=== PATIENT | female | born 1960 | race Caucasian/White ===

== ENCOUNTER 2022-10-07 12:33 | Outpatient (CLI) | payer SELFPAY ==
[2022-10-07 12:56] LABS: BASOPHILS # (AUTO) 0.1 10^3/uL (0.0-0.1); BASOPHILS % (AUTO) 0.9 %; EOSINOPHILS % (AUTO) 0.6 %; HCT - HEMATOCRIT 44.3 % (37.0-47.0); LYMPHOCYTES # (AUTO) 2.2 10^3/uL (1.5-3.5); LYMPHOCYTES % (AUTO) 32.5 %; MEAN CORPUSCULAR HEMOGLOBIN 29.3 pg (27.0-31.0); MEAN CORPUSCULAR HGB CONC 31.6 g/dL (32.0-36.0); MEAN CORPUSCULAR VOLUME 92.7 fL (81.0-99.0); MEAN PLATELET VOLUME 9.1 fL (7.9-10.8); MONOCYTES # (AUTO) 0.4 10^3/uL (0.0-1.0); MONOCYTES % (AUTO) 5.6 %; PLT - PLATELET COUNT 244 10^3/uL (130-450); RED BLOOD COUNT 4.78 10^6/uL (4.20-5.40); RED CELL DISTRIBUTION WIDTH 12.9 % (12.0-15.0); WHITE BLOOD COUNT 6.7 x10^3/uL (4.8-10.8)
[2022-10-07 13:17] LABS: ALBUMIN 3.5 g/dL (3.2-5.5); ALKALINE PHOSPHATASE 53 IU/L (42-121); ALT ALANINE AMINOTRANSFERASE 16 IU/L (10-60); AMYLASE 60 U/L (28-100); AST ASPARTATE AMINOTRANSFERASE 18 IU/L (10-42); BILIRUBIN,TOTAL 0.6 mg/dL (0.2-1.0); BUN - BLOOD UREA NITROGEN 18 mg/dL (6-20); CALCIUM 9.9 mg/dL (8.5-10.3); CARBON DIOXIDE - CO2 27 mmol/L (21-32); CHLORIDE 105 mmol/L (101-111); CHOL/HDL RATIO 3.3 (<4.4); CHOLESTEROL 189 mg/dL; CREATININE 0.8 mg/dL (0.4-1.0); GFR - MDRD 73 (>89); GLUCOSE 105 mg/dL (70-100); HDL CHOLESTEROL 57 mg/dL; LDL CHOLESTEROL,CALCULATED 107 mg/dL; LDL/HDL RATIO 1.9 (<4.4); LIPASE 35 U/L (22-51); PHOSPHORUS 3.1 mg/dL (2.5-4.6); POTASSIUM 3.9 mmol/L (3.5-5.0); SODIUM 141 mmol/L (135-145); TOTAL PROTEIN 7.6 g/dL (6.7-8.2); TRIGLYCERIDES 125 mg/dL; VLDL CHOLESTEROL 25 mg/dL
[2022-10-07 13:33] LABS: BILIRUBIN,DIRECT < 0.1 mg/dL (0.1-0.5)
== END 2022-10-07 12:34 | disposition home or self-care (01) ==
LOC: LAB 12:33
PROVIDERS: ATTEND Naturopath
DX: R10.13 Epigastric pain (principal)
CPT/HCPCS: 36415; 80061; 80069; 80076; 81599; 82150; 83690; 83721; 85025; 86677

== ENCOUNTER 2022-10-10 11:17 | Outpatient (CLI) | payer SELFPAY ==
--- NOTE | 2022-10-10 16:47 | Ultrasound Report ---
PROCEDURE: Abdomen Limited INDICATIONS: ABDOMINAL PAIN, DIARRHEA/FECAL INCONTINENCE TECHNIQUE: Real-time focused scanning was performed of the abdomen, with image documentation. COMPARISON: None FINDINGS: Liver is within normal limits. Gallbladder is grossly unremarkable. No biliary ductal dila tation. Pancreas is grossly unremarkable. Right kidney demonstrates no hydronephrosis. Proximal aorta is normal in caliber. IVC is patent. IMPRESSION: No acute process. Reviewed by: Dereje Christian MD on 10/10/2022 4:46 PM PST Approved by: Dereje Christian MD on 10/10/2022 4:46 PM PST Station ID: [id number]
== END 2022-10-10 11:18 | disposition home or self-care (01) ==
LOC: DI 11:17
PROVIDERS: ATTEND Naturopath
DX: R10.9 Unspecified abdominal pain (principal); R19.7 Diarrhea, unspecified; R15.9 Full incontinence of feces; R11.10 Vomiting, unspecified

== ENCOUNTER 2022-12-25 11:44 | Day surgery (SDC) | payer OTHER ==
[2022-12-25] MEDS ORDERED: PROPOFOL 200 MG/20 ML VIAL IVP ONE ×2 (11:47)
[2022-12-25] MEDS: LACTATED RINGERS 1,000 ML IV ONE ×2 (12:37→13:36)
--- NOTE | 2022-12-25 12:45 | ANESTHESIA ---
Pre-Anesthesia VS, & Labs - Diagnosis Screening exam and GERD - Procedure EGD and colonoscopy Vital Signs: Temp Pulse Resp BP Pulse Ox O2 Flow Rate 36.4 C L 75 16 149/78 H 100 12/25/22 12:14 12/25/22 12:14 12/25/22 12:14 12/25/22 12:14 12/25/22 12:14 Height: 5 ft 6 in Weight (kg): 77 kg Body Mass Index: 27.3 BMI Classification: Overweight - NPO >8 hours - Is Patient ?: No Home Medications and Allergies Home Medications: Ambulatory Orders Ascorbic Acid [Vitamin C] 1 tab PO DAILY 12/24/22 Cholecalciferol (Vitamin D3) [Vitamin D3] 1 tab PO DAILY 12/24/22 Magnesium 1 tab PO DAILY 12/24/22 Omeprazole 20 mg PO DAILY 12/24/22 Thyroid,Pork [Harrod Thyroid] 1 tab PO DAILY 12/24/22 Vitamin B Complex 1 tab PO DAILY 12/24/22 quiNINE [Qualaquin] 324 mg PO QPM 12/24/22 Ascorbic Acid [Vitamin C] 1 tab PO DAILY 12/24/22 Cholecalciferol (Vitamin D3) [Vitamin D3] 1 tab PO DAILY 12/24/22 Magnesium 1 tab PO DAILY 12/24/22 Omeprazole 20 mg PO DAILY 12/24/22 Thyroid,Pork [Harrod Thyroid] 1 tab PO DAILY 12/24/22 Vitamin B Complex 1 tab PO DAILY 12/24/22 quiNINE [Qualaquin] 324 mg PO QPM 12/24/22 Allergies/Adverse Reactions: Allergies Allergy/AdvReac Type Severity Reaction Status Date / Time cephradine Allergy Unknown Verified 12/24/22 13:48 morphine Allergy Emesis Verified 12/24/22 13:40 Anes History & Medical History - Anesthetic History Anesthesia Complications: reports: No previous complications - Medical History Cardiovascular: reports: Murmur Pulmonary: reports: None Gastrointestinal: reports: GERD Urinary: reports: None Neuro: reports: None Musculoskeletal: reports: None Endocrine/Autoimmune: reports: HyPOthyroidism Blood Disorders: reports: None Skin: reports: None Smoking Status: Never smoker Psychosocial: reports: No issues indicated, Other (CBD) History of Cancer?: No - Surgical History Gynecologic: reports: section, Dilation and currettage Exam General: Alert, Oriented x3, Cooperative, No acute distress Dental: WNL Mouth Openin Fingerbreadth (hx TMJ) Neck Mobility: Normal Thyromental Distance: 4-6 cm Plan Anesthesia Type: General, Total IV Consent for Procedure(s) Verified and Reviewed: Yes Code Status: Attempt Resuscitation ASA classification: 2-Mild systemic disease Is this case an emergency?: No
[2022-12-25] MEDS ORDERED: LIDOCAINE-MPF 2% 5 ML VIAL ONE (12:57)
[2022-12-25 13:48] VITALS: BP 124/64
== END 2022-12-25 11:45 | disposition home or self-care (01) ==
LOC: SDS 11:44
PROVIDERS: ATTEND Surgery
PROC: 0DBN8ZZ Excision of Sigmoid Colon, Via Natural or Artificial Opening Endoscopic (ICD-10-PCS; principal; 2022-12-25 13:15)
PROC: 0DJ08ZZ Inspection of Upper Intestinal Tract, Via Natural or Artificial Opening Endoscopic (ICD-10-PCS; 2022-12-25 13:15)
DX: Z12.11 Encounter for screening for malignant neoplasm of colon (principal); K21.9 Gastro-esophageal reflux disease without esophagitis; D12.7 Benign neoplasm of rectosigmoid junction; K64.1 Second degree hemorrhoids
CPT/HCPCS: 43235; 45385; J7120

== ENCOUNTER 2023-06-24 10:45 | Outpatient (CLI) | payer OTHER ==
--- NOTE | 2023-06-24 12:13 | Ultrasound Report ---
PROCEDURE: Pelvic w/Transvaginal INDICATIONS: POST MENOPAUSAL BLEEDING TECHNIQUE: Real-time scanning was performed of the pelvic organs, with image documentation. Additional endovagi nal scanning was necessary due to incomplete visualization of the adnexal and endometrial structures by transabdominal scanning. COMPARISON: None. FINDINGS: Uterus: Uterus measures 9 x 4 x 4.7 cm. Anteverted positioning. Endometrium measures 6 to 7 mm on tra nsvaginal images. Right posterior subserosal fibroid measuring 1.9 x 1.7 cm. Ovaries: Right ovary is not well seen. Left ovary is also not well seen. 4.5 x 4.6 cm complex fluid r egion with incomplete septations, tubular in orientation. Other: No pathologic free fluid. IMPRESSION: Mildly thickened endometrium measuring 6 to 7 mm. Consider sampling in the setting of postmenopausal bleeding. Possible left hydrosalpinx. Ovaries are not well seen. Consider follow-up with ultrasound or MRI. Reviewed by: Swapnil Kennedy MD on 06/24/2023 12:12 PM PST Approved by: Swapnil Kennedy MD on 06/24/2023 12:12 PM PST Station ID: [id number]
== END 2023-06-24 10:46 | disposition home or self-care (01) ==
LOC: DI 10:45
PROVIDERS: ATTEND Naturopath
DX: R93.89 Abnormal findings on diagnostic imaging of other specified body structures (principal); N95.0 Postmenopausal bleeding

== ENCOUNTER 2023-08-20 11:56 | Outpatient (CLI) | payer OTHER ==
[2023-08-20 12:38] LABS: BASOPHILS # (AUTO) 0.1 10^3/uL (0.0-0.1); BASOPHILS % (AUTO) 0.9 %; EOSINOPHILS # (AUTO) 0.1 10^3/uL (0.0-0.7); EOSINOPHILS % (AUTO) 1.6 %; HCT - HEMATOCRIT 44.2 % (37.0-47.0); LYMPHOCYTES # (AUTO) 2.5 10^3/uL (1.5-3.5); MEAN CORPUSCULAR HEMOGLOBIN 29.2 pg (27.0-31.0); MEAN CORPUSCULAR HGB CONC 31.7 g/dL (32.0-36.0); MEAN CORPUSCULAR VOLUME 92.3 fL (81.0-99.0); MEAN PLATELET VOLUME 9.2 fL (7.9-10.8); MONOCYTES # (AUTO) 0.4 10^3/uL (0.0-1.0); MONOCYTES % (AUTO) 7.4 %; NEUTROPHILS # (AUTO) 2.7 10^3/uL (1.5-6.6); NEUTROPHILS % (AUTO) 46.8 %; PLT - PLATELET COUNT 252 10^3/uL (130-450); RED BLOOD COUNT 4.79 10^6/uL (4.20-5.40); RED CELL DISTRIBUTION WIDTH 13.3 % (12.0-15.0); WHITE BLOOD COUNT 5.8 x10^3/uL (4.8-10.8)
[2023-08-20 15:20] LABS: FERRITIN 28.8 ng/mL (11.0-306.8); THYROID STIMULATING HORMONE 3.9 uIU/mL (0.34-5.60)
== END 2023-08-20 11:57 | disposition home or self-care (01) ==
LOC: LAB 11:56
PROVIDERS: ATTEND Naturopath
DX: N95.0 Postmenopausal bleeding (principal); E03.9 Hypothyroidism, unspecified
CPT/HCPCS: 36415; 82728; 83540; 84436; 84439; 84443; 84480; 84481; 85025

== ENCOUNTER 2023-11-10 09:10 | Outpatient (CLI) | payer OTHER ==
[2023-11-10 10:41] LABS: THYROID STIMULATING HORMONE 3.01 uIU/mL (0.34-5.60)
--- NOTE | 2023-11-10 11:29 | Ultrasound Report ---
PROCEDURE: Pelvic w/Transvaginal INDICATIONS: LEFT HYDROSALPINX TECHNIQUE: Real-time scanning was performed of the pelvic organs, with image documentation. Additional endovagi nal scanning was necessary due to incomplete visualization of the adnexal and endometrial structures by transabdominal scanning. COMPARISON: 04/24/2023. FINDINGS: Uterus: Uterus is anteverted and normal in size at 9.3 x 3.9 x 5.4 cm. The myometrium is heterogene ous. The endometrium measures 4.9 mm in combined thickness. Right posterior subserosal fibroid rni uring 1.8 x 1.6 x 1 point centimeters, stable compared to prior. Ovaries: The ovaries are not seen. Right adnexa is within normal limits. Again seen complex fluid reg ion within the left adnexa with increased septations measuring 3.9 x 3.1 x 4.9 cm, previously 4.5 x 3 .0 x 4.6 cm. Other: No pathologic free abdominal or pelvic fluid. IMPRESSION: 1.Similar appearance of possible left hydrosalpinx. 2.Ovaries are not seen. 3.Endometrium is normal in thickness. Reviewed by: Dariel Noriega MD on 11/10/2023 11:27 AM PDT Approved by: Dariel Noriega MD on 11/10/2023 11:27 AM PDT Station ID: [id number]
== END 2023-11-10 09:11 | disposition home or self-care (01) ==
LOC: DI 09:10
PROVIDERS: ATTEND Naturopath
DX: N70.11 Chronic salpingitis (principal); E03.9 Hypothyroidism, unspecified
CPT/HCPCS: 36415; 84436; 84439; 84443; 84480; 84481

== ENCOUNTER 2024-02-24 13:14 | Outpatient (CLI) | payer OTHER ==
[2024-02-24 18:22] LABS: THYROID STIMULATING HORMONE 0.61 uIU/mL (0.34-5.60)
[2024-02-25 08:11] LABS: ESTRADIOL 23.1 pg/mL (0.0-54.7); PROGESTERONE 0.7 ng/mL (.)
== END 2024-02-24 13:15 | disposition home or self-care (01) ==
LOC: LAB.N 13:14
PROVIDERS: ATTEND Naturopath
DX: E03.9 Hypothyroidism, unspecified (principal)
CPT/HCPCS: 36415; 82607; 82670; 84144; 84207; 84436; 84439; 84443; 84480; 84481